=== PATIENT | male | born 1990 | race Caucasian/White ===

== ENCOUNTER 2016-07-21 02:39 | Emergency (ER) | payer OTHER ==
[2016-07-21 03:01] LABS: #Eosinphils 0.1 thou/uL (0.0-0.7); #Lymphocytes 1.5 thou/uL (1.20-3.40); #Monocytes 0.4 thou/uL (0.11-0.59); #Neutrophils 4.8 thou/uL (1.40-6.50); %Basophils 0.7 % (0.0-1.0); %Eosinophils 0.8 % (0.0-10.0); %Lymphocytes 22.5 % (21.0-51.0); %Monocytes 6.4 % (0.0-10.0); %Neutrophils 69.6 % (42.0-75.0); Hemoglobin 15.6 g/dL (14.0-18.0); Mean Corpuscular HGB CONC 33.8 g/dL (32.0-36.0); Mean Corpuscular Hemoglobin 30.2 pg (27.0-31.0); Mean Corpuscular Volume 89.5 fl (80.0-94.0); Platelet Count 162 thou/uL (130-400); RBC Distribution Width 11.9 % (11.5-14.5); Red Blood Cell (RBC) Count 5.15 mill/uL (4.70-6.10); White Blood Cell (WBC) Count 6.9 thou/uL (4.8-10.8)
[2016-07-21] MEDS ORDERED: Ondansetron HCl/PF 4 MG/2 ML Vial ONE (03:07)
[2016-07-21 03:22] LABS: Bilirubin Negative (Negative); Blood, Urine Negative (Negative); Clarity Clear (Clear); Glucose, Urine (Dipstick) Negative (Negative); Leukocyte Negative (Negative); Nitrite Negative (Negative); Protein, Urine (Dipstick) Negative (Neg-Trace); Urobilinogen 0.2 mg/dL (0.2-1.0)
[2016-07-21 03:23] LABS: ALT (SGPT) 44 U/L (8-55); AST (SGOT) 31 U/L (5-34); Alcohol 215 mg/dL (Less than 10); Alkaline Phosphatase 70 U/L (40-150); Anion Gap 19 mmol/L (10-20); BUN (Urea Nitrogen) 15 mg/dL (8.9-20.6); Bilirubin, Total 0.3 mg/dL (0.2-1.2); CK (CPK) 281 U/L (30-200); Calc. Creatinine Clearance 0 mL/min (70-130); Calcium 9.9 mg/dL (7.8-10.44); Carbon Dioxide 24 mmol/L (22-29); Chloride 99 mmol/L (98-107); Estimated GFR-MDRD 82; Globulin 3.6 g/dL (2.4-3.5); Glucose 121 mg/dL (70-105); Lipase 15 U/L (8-78); Potassium 3.6 mmol/L (3.5-5.1); Protein, Total 8.6 g/dL (6.0-8.3); Sodium 138 mmol/L (136-145)
[2016-07-21 03:29] LABS: Amphetamine Not Detected (NotDetected); Barbiturates Screen Not Detected (NotDetected); Benzodiazepine Screen Not Detected (NotDetected); Cocaine Metabolite Screen Not Detected (NotDetected); Medtox Control Line Valid? VALID (VALID); Methadone Not Detected (NotDetected); Methamphetamine Not Detected (NotDetected); Opiate Screen Not Detected (NotDetected); Oxycodone Screen Not Detected (NotDetected); Phencyclidine (PCP) Not Detected (NotDetected); THC/Cannabinoid Screen Not Detected (NotDetected); Tricyclic Screen Not Detected (NotDetected)
--- NOTE | 2016-07-21 11:13 | RAD ---
FRONTAL RADIOGRAPH OF CHEST: Date: 07/21/16 COMPARISON: None. HISTORY: Not responsive, nausea and vomiting. FINDINGS: No pneumothorax, pleural fluid, focal consolidation, or alveolar edema. Heart and mediastinal contou rs within normal limits. IMPRESSION: No acute findings. POS: [facility]
== END 2016-07-21 03:49 | disposition home or self-care (01) ==
LOC: NAV ERS 02:39
DX: F10.129 Alcohol abuse with intoxication, unspecified (principal); F17.210 Nicotine dependence, cigarettes, uncomplicated; Y90.7 Blood alcohol level of 200-239 mg/100 ml
CPT/HCPCS: 36415; 71010; 80053; 80306; 80307; 81003; 82550; 83690; 85025; 93005; 96374; J2405

== ENCOUNTER 2018-12-18 16:39 | Emergency (ER) | payer SELFPAY ==
[2018-12-18] MEDS ORDERED: Fluorescein Opthalmic Strip ONE (17:04)
== END 2018-12-18 17:35 ==
LOC: NAV ERS 16:39
DX: S05.01XA Injury of conjunctiva and corneal abrasion without foreign body, right eye, initial encounter (principal); X58.XXXA Exposure to other specified factors, initial encounter
CPT/HCPCS: 99283

== ENCOUNTER 2019-12-13 18:44 | Emergency (ER) | payer SELFPAY ==
[2019-12-13] MEDS ORDERED: Sulfameth/Trimethoprim DS 800-160mg TAB ONE (19:22)
[2019-12-13] MEDS ORDERED: cefTRIAXone\\ROCEPHIN 1 GM VIAL ONE (19:22)
[2019-12-13] MEDS ORDERED: Lidocaine 1% (PF) 30 ML VIAL ONE (19:22)
== END 2019-12-13 19:57 | disposition home or self-care (01) ==
LOC: NAV ERS 18:44
DX: L03.011 Cellulitis of right finger (principal); I10 Essential (primary) hypertension; F17.210 Nicotine dependence, cigarettes, uncomplicated
CPT/HCPCS: 96372; 99283; J0696; J2001

== ENCOUNTER 2019-12-15 08:59 | Emergency (ER) | payer SELFPAY ==
[2019-12-15] MEDS ORDERED: cefTRIAXone\\ROCEPHIN 2 GM VIAL ONE (09:53)
[2019-12-15] MEDS ORDERED: Vancomycin 1.5 GRAM/300 ML BAG ONE ×2 (09:53→09:54)
[2019-12-15] MEDS ORDERED: Morphine 4 MG/ML VIAL ONE ×2 (09:53→11:09)
[2019-12-15] MEDS ORDERED: Ondansetron PF 4 MG/2 ML Vial ONE (09:53)
[2019-12-15] MEDS ORDERED: Sodium Chloride 0.9% 100 ML ONE ×2 (09:55→09:56)
[2019-12-15 09:57] LABS: #Eosinphils 0.1 thou/uL (0.0-0.7); #Lymphocytes 0.9 thou/uL (1.20-3.40); #Monocytes 0.5 thou/uL (0.11-0.59); #Neutrophils 8.6 thou/uL (1.40-6.50); %Basophils 0.4 % (0.0-1.0); %Eosinophils 1.2 % (0.0-10.0); %Lymphocytes 8.9 % (21.0-51.0); %Monocytes 5.3 % (0.0-10.0); %Neutrophils 84.2 % (42.0-75.0); Hemoglobin 15.2 g/dL (14.0-18.0); Mean Corpuscular HGB CONC 32.8 g/dL (32.0-36.0); Mean Corpuscular Hemoglobin 31.4 pg (27.0-31.0); Mean Corpuscular Volume 95.8 fL (78.0-98.0); Mean Platelet Volume 8.6 fL (7.4-10.4); Platelet Count 174 thou/uL (130-400); Red Blood Cell (RBC) Count 4.85 mill/uL (4.70-6.10); White Blood Cell (WBC) Count 10.2 thou/uL (4.8-10.8)
[2019-12-15 10:18] LABS: ALT (SGPT) 21 U/L (8-55); AST (SGOT) 19 U/L (5-34); Albumin 4.1 g/dL (3.5-5.0); Alkaline Phosphatase 68 U/L (40-110); Anion Gap 15 mmol/L (10-20); BUN (Urea Nitrogen) 19 mg/dL (8.9-20.6); Bilirubin, Total 0.2 mg/dL (0.2-1.2); Calc. Creatinine Clearance 0 mL/min (70-130); Calcium 9.4 mg/dL (7.8-10.44); Carbon Dioxide 24 mmol/L (22-29); Chloride 103 mmol/L (98-107); Estimated GFR-MDRD Greater than 90; Globulin 3.7 g/dL (2.4-3.5); Glucose 82 mg/dL (70-105); Protein, Total 7.8 g/dL (6.0-8.3); Sodium 138 mmol/L (136-145)
[2019-12-15] MEDS ORDERED: Ketorolac Tromethamine 30 MG/ML VIAL ONE (11:07)
--- NOTE | 2019-12-15 11:19 | RAD ---
Exam: Right hand 3 views: HISTORY: Cellulitis right middle finger with pain and swelling and redness COMPARISON: None FINDINGS: Marked soft tissue swelling of the middle finger. No evidence for fracture, dislocation, or other significant acute osseous abnormality. IMPRESSION: Middle finger soft tissue swelling without acute osseous process.
== END 2019-12-15 11:45 | disposition short-term general hospital (02) ==
LOC: NAV ERS 08:59
DX: L03.011 Cellulitis of right finger (principal); I10 Essential (primary) hypertension; F17.210 Nicotine dependence, cigarettes, uncomplicated; Z79.899 Other long term (current) drug therapy
CPT/HCPCS: 80053; 83605; 85025; 86140; 87040; 87070; 87077; 87186; 87205; 96365; 96367; 96375; 96376; J0696; J1885; J2270; J2405; J3370; J3490

== ENCOUNTER 2020-09-06 00:47 | Emergency (ER) | payer SELFPAY | END 2020-09-06 01:10 | disposition left against medical advice (07) | LOC: NAV ERS 00:47 | DX: M25.521 Pain in right elbow (principal); F17.210 Nicotine dependence, cigarettes, uncomplicated | CPT/HCPCS: 99283 ==

== ENCOUNTER 2020-11-25 14:49 | Emergency (ER) | payer SELFPAY ==
[2020-11-25] MEDS ORDERED: Fluorescein Opthalmic Strip ONE (14:56)
[2020-11-25] MEDS ORDERED: Proparacaine 0.5% Opth 15 ML BOT ONE (14:56)
[2020-11-25] MEDS ORDERED: Sodium Chloride 0.9% 500 ML ONE (15:19)
[2020-11-25] MEDS ORDERED: Erythromycin Base 0.5% Oint 1 GM TUBE ONE (15:48)
== END 2020-11-25 15:55 | disposition home or self-care (01) ==
LOC: NAV ERS 14:49
DX: T15.02XA Foreign body in cornea, left eye, initial encounter (principal); I10 Essential (primary) hypertension; F17.210 Nicotine dependence, cigarettes, uncomplicated
CPT/HCPCS: 99283; J7030

== ENCOUNTER 2021-06-26 12:20 | Emergency (ER) | payer SELFPAY ==
[2021-06-26 13:26] LABS: #Eosinphils 0.1 thou/uL (0.0-0.7); #Monocytes 0.4 thou/uL (0.11-0.59); #Neutrophils 3.3 thou/uL (1.40-6.50); %Basophils 0.5 % (0.0-1.0); %Eosinophils 1.8 % (0.0-10.0); %Monocytes 8.9 % (0.0-10.0); %Neutrophils 68.8 % (42.0-75.0); Hemoglobin 12.3 g/dL (14.0-18.0); Mean Corpuscular HGB CONC 30.5 g/dL (32.0-36.0); Mean Corpuscular Hemoglobin 28.2 pg (27.0-31.0); Mean Corpuscular Volume 92.5 fL (78.0-98.0); Mean Platelet Volume 9.8 fL (7.4-10.4); Platelet Count 162 thou/uL (130-400); RBC Distribution Width 12.5 % (11.5-14.5); Red Blood Cell (RBC) Count 4.37 mill/uL (4.70-6.10); White Blood Cell (WBC) Count 4.9 thou/uL (4.8-10.8)
[2021-06-26 13:52] LABS: ALT (SGPT) 201 U/L (8-55); AST (SGOT) 73 U/L (5-34); Alkaline Phosphatase 94 U/L (40-110); Anion Gap 16 mmol/L (10-20); BUN (Urea Nitrogen) 14 mg/dL (8.9-20.6); Bilirubin, Total 0.4 mg/dL (0.2-1.2); Calc. Creatinine Clearance 0 mL/min (70-130); Calcium 9.5 mg/dL (7.8-10.44); Carbon Dioxide 27 mmol/L (22-29); Chloride 104 mmol/L (98-107); Globulin 3.1 g/dL (2.4-3.5); Glucose 95 mg/dL (70-105); Potassium 4.5 mmol/L (3.5-5.1); Protein, Total 7.1 g/dL (6.0-8.3); Sodium 142 mmol/L (136-145)
[2021-06-27 11:52] LABS: Chlam.trachomatis by PCR,Urine Not Detected (NotDetected)
[2021-06-27 14:03] LABS: Syphilis Antibody REACTIVE (Nonreactive); Syphilis Antibody Index 18.97 S/CO (<1.00 Non-Reactive)
== END 2021-06-26 14:00 | disposition home or self-care (01) ==
LOC: NAV ERS 12:20
DX: R21 Rash and other nonspecific skin eruption (principal); F17.210 Nicotine dependence, cigarettes, uncomplicated
CPT/HCPCS: 36415; 80053; 85025; 86593; 86780; 87491; 87591; 99283

== ENCOUNTER 2021-07-05 04:22 | Emergency (ER) | payer SELFPAY ==
[2021-07-05] MEDS ORDERED: Penicillin V Potassium 250 MG TAB ONE (04:50)
[2021-07-05] MEDS ORDERED: Bicillin LA 1.2 MILLION UNITS/2 ML SYRINGE ONE (04:51)
== END 2021-07-05 05:15 | disposition home or self-care (01) ==
LOC: NAV ERS 04:22
DX: A51.49 Other secondary syphilitic conditions (principal); K12.0 Recurrent oral aphthae; F17.210 Nicotine dependence, cigarettes, uncomplicated
CPT/HCPCS: 96372; 99282; J0561

== ENCOUNTER 2024-04-16 19:35 | Emergency (ER) | payer SELFPAY ==
[2024-04-16] MEDS ORDERED: Ibuprofen 800 MG TAB ONE (20:00)
[2024-04-16 21:05] LABS: Clarity Hazy (Clear)
[2024-04-16 21:06] LABS: Bilirubin Small (Negative); Blood, Urine Negative (Negative); Glucose, Urine (Dipstick) Negative (Negative); Ketone, Urine Trace mg/dL (Negative); Leukocyte Negative (Negative); Nitrite Negative (Negative); Protein, Urine (Dipstick) > or equal to 300 mg/dL (Neg-Trace)
[2024-04-16 21:08] LABS: Bacteria/HPF Rare-Few HPF (None Seen); CAUTI Indications for Culture Fever or rigors; RBC/HPF 0-3 HPF (0-3); Squamous Epithelial 0-3 HPF (0-3)
[2024-04-16 21:09] LABS: Mucous/LPF 2+ LPF (<2+); Urine Culture Reflex No No
[2024-04-16] MEDS ORDERED: Sulfameth/Trimethoprim DS 800-160mg TAB ONE (21:16)
== END 2024-04-16 21:27 | disposition home or self-care (01) ==
LOC: NAV ERS 19:35
DX: N10 Acute pyelonephritis (principal); F17.210 Nicotine dependence, cigarettes, uncomplicated
CPT/HCPCS: 71046; 81001; 87428